=== PATIENT | male | born 1945 | race Caucasian/White ===

== ENCOUNTER 2018-01-08 18:00 | Emergency (ER) | payer MEDICARE, OTHER ==
[~2018-01-08] VITALS: Ht 172.7 cm; Wt 86.2 kg
--- NOTE | 2018-01-08 18:19 | NUR ---
pt rec'd to er via ems , pt c/o dizzy and fell x2 at bedside. pt was released from [facility] 01/04/18 pt had stroke left side weakness . no c/o pain at this time . left neck ej 20g indfusing ns . labs called blood drawn sent to lab
--- NOTE | 2018-01-08 18:22 | NUR ---
xray done . pending ua
--- NOTE | 2018-01-08 18:31 | NUR ---
pt sent to ct
[2018-01-08 18:33] LABS: BASOPHILS % (AUTO) 0.1 % (0.0-2.0); EOSINOPHILS # (AUTO) 0.2 /CMM (0.0-0.7); LYMPHOCYTES # (AUTO) 0.5 /CMM (0.8-4.8); MONOCYTES # (AUTO) 0.5 /CMM (0.1-1.30); NEUTROPHILS # (AUTO) 10.7 /CMM (1.8-8.9); RED BLOOD CELL COUNT(AUTO) 2.36 MIL/uL (4.5-6.0); WHITE BLOOD COUNT (AUTO) 11.9 K/uL (4.3-11.0)
[2018-01-08 18:35] LABS: EOSINOPHILS % (AUTO) 1.5 % (0.0-6.0); LYMPHOCYTES % (AUTO) 4.3 % (20.0-44.0); MEAN CORPUSCULAR HEMOGLOBIN 29 PG (26.0-33.0); MEAN CORPUSCULAR HGB CONC 34 g/dl (31.0-36.0); MEAN CORPUSCULAR VOLUME 86 fL (80-96); MONOCYTES % (AUTO) 4.1 % (2.0-12.0); PLATELET COUNT (AUTO) 296 /CMM (150-450); RDW COEFFICIENT OF VARIATION 14.6 (11.5-15.0)
[2018-01-08 18:40] LABS: HEMATOCRIT 20 % (39-51); HEMOGLOBIN 6.9 g/dL (13.5-17.5)
[2018-01-08 18:48] LABS: CALCIUM, SERUM 8.4 mg/dL (8.5-10.1); CARBON DIOXIDE 20 mmol/L (21-32); CHLORIDE 104 mmol/L (98-107); CREATININE 3.3 mg/dL (0.6-1.3); GLUCOSE 123 mg/dL (74-106); INR 1.16 (0.85-1.15); POTASSIUM 4.2 mmol/L (3.5-5.1); SODIUM SERUM 136 mmol/L (136-145); UREA NITROGEN, BLOOD 34 mg/dL (7-18)
[2018-01-08 18:51] LABS: ALANINE AMINOTRANSFERASE 23 U/L (12-78); ALBUMIN 2.6 g/dL (3.4-5.0); ALKALINE PHOSPHATASE 115 U/L (46-116); ASPARTATE AMINOTRANSFERASE 17 U/L (15-37); BILIRUBIN,DIRECT 0.1 mg/dL (0.0-0.2); BILIRUBIN,TOTAL 0.4 mg/dL (0.2-1.0); TOTAL PROTEIN, SERUM 6.8 g/dL (6.4-8.2)
[2018-01-08 18:53] LABS: TROPONIN I < 0.017 ng/mL (0.00-0.056)
--- NOTE | 2018-01-08 18:56 | NUR ---
pt back from ct iv hepocked 20g .
--- NOTE | 2018-01-08 19:09 | NUR ---
in and out done ua sent to lab .
[2018-01-08 19:10] LABS: THYROID STIMULATING HORMONE 3.908 uIU/mL (0.358-3.74)
[2018-01-08 19:21] LABS: APPEARANCE,URINE Clear (CLEAR); BILIRUBIN,URINE Negative (NEGATIVE); BLOOD, URINE Small Ery/uL (NEGATIVE); COLOR,URINE Yellow (YELLOW); KETONES,URINE Negative (NEGATIVE); LEUKOCYTE ESTERASE ,URINE Negative (NEGATIVE); NITRITE, URINE Negative (NEGATIVE); PH,URINE 5.5 (5.0-8.0); PROTEIN,URINE 100 mg/dl (NEGATIVE); UGLUCOSE Negative (NEGATIVE); UROBILINOGEN,URINE 0.2 EU/dL (0.2)
[2018-01-08] MEDS ORDERED: ASPI-1152 PO (19:24)
[2018-01-08] MEDS ORDERED: SERT100T PO (19:24)
[2018-01-08] MEDS ORDERED: TAMS-12 PO (19:24)
[2018-01-08] MEDS ORDERED: ALLO100T PO (19:24)
[2018-01-08] MEDS ORDERED: OXYB5TAB PO (19:24)
[2018-01-08] MEDS ORDERED: ROSU20TA PO (19:24)
[2018-01-08] MEDS ORDERED: EVOL140P SQ (19:24)
[2018-01-08 19:25] LABS: BAND % (MANUAL) 1 % (0.0-5.0); LYMPHOCYTES % (MANUAL) 4 % (16-48); MONOCYTES % (MANUAL) 4 % (0-11.0); NEUTROPHILS % (MANUAL) 91 (42-76)
[2018-01-08 19:28] LABS: BACTERIA,URINE 1+ /HPF (None Seen); SQUAMOUS EPITHELIAL CELL,UR None Seen /HPF (None Seen); URINE AMORPHOUS PHOSPHATES Moderate /HPF (None Seen); WBC,URINE NONE SEEN /HPF (0-3)
--- NOTE | 2018-01-08 20:13 | NUR ---
REPORT GIVEN TO AURELIANO
--- NOTE | 2018-01-08 20:22 | NUR ---
PT OFF TO CT
--- NOTE | 2018-01-08 20:25 | NUR ---
Cindy desai in ED - 01/08/18 at 2310 by [facility] INFUSING NOW
--- NOTE | 2018-01-08 20:39 | NUR ---
PT BACK FROM CT
--- NOTE | 2018-01-08 21:09 | NUR ---
ON-CALL THORACIC SURGEON PAGED.
--- NOTE | 2018-01-08 21:38 | NUR ---
BP ON RIGHT ARM 103/63 WITH MN FAINT 104 BP ON LEFT ARM 107/83 WITH MN 108
--- NOTE | 2018-01-08 21:41 | NUR ---
[facility] CALLED AND NOTIFIED ABOUT PT FACESHEET AND CT REPORT FAXED TO [facility].
--- NOTE | 2018-01-08 21:42 | NUR ---
BLOOD TRANSFUSION CONSENT SIGNED BY FAMILY MEMBER AND ER MD REDDY
--- NOTE | 2018-01-08 21:52 | NUR ---
AWAITING BLOOD TO BE READY. CALLED LAB X1
--- NOTE | 2018-01-08 21:53 | NUR ---
[facility] NOTIFIED. FACESHEET AND CT REPORT FAXED.
--- NOTE | 2018-01-08 22:25 | NUR ---
[facility] 1 UNIT INFUSING NOW. WILL CONTINUE TO MONITOR FOR ANY CHANGES
--- NOTE | 2018-01-08 22:28 | NUR ---
[facility] CALLED FOR HIGHER LEVEL OF CARE.
[2018-01-08] MEDS ORDERED: CT SWABBABLE VALVE TRANS SET 1 EA INFUS.SET MC ONE (22:33)
[2018-01-08] MEDS ORDERED: IOHEXOL-350 100 ML VIAL IV ONE (22:33)
[2018-01-08] MEDS ORDERED: IV NS 0.9% 250 ML IV ONE (22:33)
--- NOTE | 2018-01-08 23:13 | NUR ---
CALLED [facility]. PT ACCEPTED BY DR CARPIO. ICU [id number].
--- NOTE | 2018-01-08 23:13 | NUR ---
PT COMFORTABLE AT THIS TIME. NS NOW RUNNING THROUGH IV LINE
[2018-01-08] MEDS ORDERED: ONDANSETRON HCL/PF 4 MG/2 ML VIAL ONE (23:17)
--- NOTE | 2018-01-08 23:17 | NUR ---
[facility] CCT ETA 1HR
[2018-01-08] MEDS ORDERED: HYDROMORPHONE INJ 2 MG/ML DISP.SYRIN ONE ×2 (23:18→23:58)
[2018-01-08] MEDS ORDERED: ONDANSETRON HCL/PF - ER 4 MG/2 ML VIAL IV ONE (23:30)
[2018-01-08] MEDS ORDERED: HYDROMORPHONE 1 MG/1 ML DISP.SYRIN IV ONE (23:30)
--- NOTE | 2018-01-08 23:53 | NUR ---
REPORT GIVEN TO ICU NURSE JUAN M CEDILLO
[2018-01-09] MEDS ORDERED: HYDROMORPHONE 1 MG/1 ML DISP.SYRIN IV ONE
--- NOTE | 2018-01-09 00:08 | NUR ---
AWAITING FOR TRANSPORT
--- NOTE | 2018-01-09 00:31 | NUR ---
REPORT GIVEN TO GREASE MAN CHRIS
[2018-01-09 00:32] VITALS: BP 161/60
== END 2018-01-09 00:51 | disposition short-term general hospital (02) ==
LOC: ER 18:02 → TELE 20:07 → UNDOADMIN 20:07 → ER 01-09 00:51
DX: S36.892A Contusion of other intra-abdominal organs, initial encounter (principal); I71.3 Abdominal aortic aneurysm, ruptured; R55 Syncope and collapse; D64.9 Anemia, unspecified; F10.10 Alcohol abuse, uncomplicated; N19 Unspecified kidney failure; Z86.73 Personal history of transient ischemic attack (TIA), and cerebral infarction without residual deficits; Z79.82 Long term (current) use of aspirin; W18.39XA Other fall on same level, initial encounter; Y93.89 Activity, other specified; Y92.89 Other specified places as the place of occurrence of the external cause; Y99.8 Other external cause status
CPT/HCPCS: 36415; 70450-TC; 71045-TC; 71250-TC; 72125-TC; 80048-TC; 80076-TC; 81000-TC; 82962-TC; 84443-TC; 84484-TC; 85025-TC; 85730-TC; 86850-TC; 86921-TC; 87081-TC; A4606; J1170; J2405; J7050; P9016-BL; Q9967; Z7610

== ENCOUNTER 2019-09-18 15:55 | Inpatient (IN) | payer MEDICARE, OTHER ==
[~2019-09-18] VITALS: Ht 167.6 cm; Wt 84.4 kg
[~2019-09-18 15:55] MED LIST: ALLO100T PO; ASPI-1152 PO; EVOL140P3 SQ; OXYB-58 PO; ROSU20TA2 PO; SERT100T PO; TAMS-12 PO
--- NOTE | 2019-09-18 16:05 | NUR ---
[id number] frm home c/o SOB/chest pain s/p dialysis earlier. pt was given nitro x 1w/ relief. patient a/ox3, breathing even and unlabored, spo2 88%, placed on 2lpm via nc. no distress noted. Changed into gown, attached to the secured entrance monitor.
[2019-09-18] MEDS ORDERED: ACETAMINOPHEN ES 500 MG TABLET ONE (16:08)
--- NOTE | 2019-09-18 16:10 | NUR ---
DR. ROLDAN AT BEDSIDE FOR EVAL.
[2019-09-18 16:25] LABS: BASOPHILS % (AUTO) 0.4 % (0.0-2.0); EOSINOPHILS % (AUTO) 2.4 % (0.0-6.0); HEMATOCRIT 30 % (39-51); HEMOGLOBIN 10.2 g/dL (13.5-17.5); LYMPHOCYTES # (AUTO) 0.6 /CMM (0.8-4.8); LYMPHOCYTES % (AUTO) 5.7 % (20.0-44.0); MEAN CORPUSCULAR HGB CONC 34 g/dl (31.0-36.0); MEAN CORPUSCULAR VOLUME 96 fL (80-96); MONOCYTES # (AUTO) 0.7 /CMM (0.1-1.30); MONOCYTES % (AUTO) 7.1 % (2.0-12.0); NEUTROPHILS # (AUTO) 8.5 /CMM (1.8-8.9); NEUTROPHILS % (AUTO) 84.4 % (43.0-81.0); PLATELET COUNT (AUTO) 172 /CMM (150-450); RED BLOOD CELL COUNT(AUTO) 3.17 MIL/uL (4.5-6.0)
[2019-09-18] MEDS ORDERED: ACETAMINOPHEN ES 500 MG TABLET PO ONE (16:30)
--- NOTE | 2019-09-18 16:41 | NUR ---
CALLED FOR TELE BED AND MOVE SHEET TURNED IN TO ADMITTING
[2019-09-18 16:46] LABS: ALANINE AMINOTRANSFERASE 23 U/L (12-78); ALBUMIN 2.7 g/dL (3.4-5.0); ALKALINE PHOSPHATASE 109 U/L (46-116); ASPARTATE AMINOTRANSFERASE 28 U/L (15-37); B-TYPE NATRIURETIC PEPTIDE 6994 PG/ML (0-125); BILIRUBIN,DIRECT 0.2 mg/dL (0.0-0.2); BILIRUBIN,TOTAL 0.7 mg/dL (0.2-1.0); CALCIUM, SERUM 9.3 mg/dL (8.5-10.1); CARBON DIOXIDE 31 mmol/L (21-32); CHLORIDE 99 mmol/L (98-107); CREATININE 3.4 mg/dL (0.6-1.3); GLUCOSE 118 mg/dL (74-106); POTASSIUM 3.7 mmol/L (3.5-5.1); SODIUM SERUM 140 mmol/L (136-145); TOTAL PROTEIN, SERUM 7.4 g/dL (6.4-8.2); UREA NITROGEN, BLOOD 15 mg/dL (7-18)
[2019-09-18] MEDS ORDERED: VANCOMYCIN 1 GM in IV D5W 250 ML IV ONE (17:00)
[2019-09-18] MEDS ORDERED: PIPERACILLIN /TAZOBACTAM 3.375 G in IV D5W 50 ML IV ONE (17:00)
--- NOTE | 2019-09-18 17:00 | NUR ---
patient unable to produce urine, dr. jolly made aware.
--- NOTE | 2019-09-18 17:31 | NUR ---
DR ARZATE AT BEDSIDE.
--- NOTE | 2019-09-18 17:50 | NUR ---
ASHLEY, SPOKE TO PT AND AT BEDSIDE, BOTH DOESNT REMEMBER THE MEDICATION THE PT IS TAKING, PER SHE WILL GO HOME AND GET THE MEDICATION.
--- NOTE | 2019-09-18 17:57 | NUR ---
bed assign 304-1 tele
[2019-09-18] MEDS ORDERED: ONDANSETRON HCL/PF 4 MG/2 ML VIAL IVP PRN (18:00)
[2019-09-18] MEDS ORDERED: Z GUARD REMEDY 2 OZ OINT TP PRN (18:00)
[2019-09-18] MEDS ORDERED: HYDROCODONE/APAP 5/325MG 1 EACH TABLET PO PRN (18:00)
[2019-09-18] MEDS ORDERED: MAG HYDROX/AL HYDROX/SIMETH 30 ML UDC PO PRN (18:00)
[2019-09-18] MEDS ORDERED: MAGNESIUM HYDROXIDE 30 ML UDC PO PRN (18:00)
--- NOTE | 2019-09-18 18:04 | NUR ---
REPORT GIVEN TO WALE PÉREZ.
[2019-09-18] MEDS ORDERED: FEE PK DOSING 1 MIN EA MC ONE (18:22)
[2019-09-18] MEDS ORDERED: VANCOMYCIN 500 MG in IV D5W 100 ML IV PRN (18:30)
--- NOTE | 2019-09-18 18:33 | NUR ---
RN NOTES Patient received at this time from ER. R HAND 20, with FLEX fistula. no sob noted, patient shows no s/s of pain at this time. Connected to a tele monitor. Bed at the lowest setting, call light within reach, side rails up x2.
--- NOTE | 2019-09-18 18:37 | NUR ---
TRANSFERRED TO ROOM 304-1 VIA ACLS PROTOCOL. NO DISTRESS NOTED.
--- NOTE | 2019-09-18 18:52 | NUR ---
RN CLOSING NOTRES Patient received at this time from ER. R HAND 20, with FLEX fistula. no sob noted, patient shows no s/s of pain at this time. Connected to a tele monitor. Bed at the lowest setting, call light within reach, side rails up x2. Will give report to NOC RN for LIVAN bedside.
--- NOTE | 2019-09-18 19:00 | NUR ---
FRONT WORKER NOTES Received patient A/O x3-4, awake on bed, with delayed thought process/though blocking noted. On tele monitor with NSR noted. On RA, no SOB/respiratory distress noted at this time. Patient denies chest pain at this time. Initial skin assessment done, patient claimed no skin issues identified at this time. Patient preferred to keep on his pants while on hospital gown. Provided snacks per patient demand, on Renal diet. Kept on bed clean, dry and comfortable. Med recon completed. On fall and aspiration precautions. Call light within easy reach. Will continue to monitor accordingly.
[2019-09-18] MEDS ORDERED: DEXL60CA3 PO (19:43)
[2019-09-18] MEDS ORDERED: CARV12.52 PO (19:43)
[2019-09-18] MEDS ORDERED: LISI10TA5 PO (19:43)
[2019-09-18 20:00] VITALS: BP 107/67
[2019-09-18] MEDS: ZOSYN IVPB 2.25 G in IV D5W 50ml IV SCH (23:29)
--- NOTE | 2019-09-19 01:00 | NUR ---
LOCATION WORKER NOTES Endorsed to ELISA Tilley for LIVAN.
--- NOTE | 2019-09-19 01:10 | NUR ---
MACHINE II TRIMMER NOTES REPORT GIVEN BY PAN FOR [facility]. RECEIVED PATIENT AWAKE IN BED, A/OX3-4 WITH DELAYED THOUGHT PROCESS. PATIENT IS IN A STABLE CONDITION. PATIENT IS VERBALLY RESPONSIVE AND ABLE TO MAKE NEEDS KNOWN. ON TELE MONITORING, WITH NSR NOTED. ON ROOM AIR, NO SOB, NO S/S OF ACUTE DISTRESS, NO COMPLAINS OF PAIN AT THIS TIME. ON FALL AND ASPIRATION PRECAUTIONS. CALL LIGHT IS WITHIN EASY REACH. WILL CONTINUE TO MONITOR PATIENT ACCORDINGLY.
[2019-09-19 04:01] VITALS: BP 117/70
[2019-09-19] MEDS: ZOSYN IVPB 2.25 G in IV D5W 50ml IV SCH ×4 (05:42→23:24)
[2019-09-19 07:01] LABS: BASOPHILS % (AUTO) 0.2 % (0.0-2.0); EOSINOPHILS % (AUTO) 4.4 % (0.0-6.0); HEMATOCRIT 25 % (39-51); HEMOGLOBIN 8.4 g/dL (13.5-17.5); LYMPHOCYTES # (AUTO) 0.5 /CMM (0.8-4.8); LYMPHOCYTES % (AUTO) 7.2 % (20.0-44.0); MEAN CORPUSCULAR HGB CONC 34 g/dl (31.0-36.0); MEAN CORPUSCULAR VOLUME 96 fL (80-96); MONOCYTES # (AUTO) 0.5 /CMM (0.1-1.30); MONOCYTES % (AUTO) 7.2 % (2.0-12.0); NEUTROPHILS # (AUTO) 5.5 /CMM (1.8-8.9); PLATELET COUNT (AUTO) 132 /CMM (150-450); RED BLOOD CELL COUNT(AUTO) 2.61 MIL/uL (4.5-6.0); WHITE BLOOD COUNT (AUTO) 6.8 K/uL (4.3-11.0)
[2019-09-19 07:09] LABS: CHOLESTEROL 103 mg/dL (<200); HDL CHOLESTEROL 23 mg/dL (40-60); LDL 57 mg/dL (0-99); THYROID STIMULATING HORMONE 0.871 uIU/mL (0.358-3.74); TRIGLYCERIDES 120 mg/dL (30-150)
--- NOTE | 2019-09-19 07:14 | NUR ---
FISHING TACKLE REPAIRER CLOSING NOTES PATIENT AWAKE IN BED, A/OX3-4. PATIENT IS IN A STABLE CONDITION. PATIENT IS VERBALLY RESPONSIVE AND ABLE TO MAKE NEEDS KNOWN. ON TELE MONITORING, WITH NSR NOTED. ON ROOM AIR, NO SOB, NO S/S OF ACUTE DISTRESS, NO COMPLAINS OF PAIN AT THIS TIME. ON FALL AND ASPIRATION PRECAUTIONS. CALL LIGHT IS WITHIN EASY REACH. ALL NURSING NEEDS MET AND PROVIDED. ALL DUE MED GIVEN ORDERED. WILL ENDORSE TO DAY SHIFT NURSE FOR LIVAN.
--- NOTE | 2019-09-19 07:30 | NUR ---
MS/RN Patient received Patient received from hourly shift, with diagnosis of sepsis and pneumonia. A/O X4, no shortness of breath, denies any pain or discomfort at this time. Heplock to right hand flushing well, shows no signs of infiltration. Left upper arm with AV fistula, dressing dry and intact. All needs attended, call light within reach. Time allowed for all questions and concerns to be addressed. Will continue to monitor and ensure safety.
[2019-09-19 07:57] LABS: CALCIUM, SERUM 7.7 mg/dL (8.5-10.1); CARBON DIOXIDE 26 mmol/L (21-32); CHLORIDE 95 mmol/L (98-107); PHOSPHORUS 2.4 mg/dL (2.5-4.9); SODIUM SERUM 138 mmol/L (136-145); UREA NITROGEN, BLOOD 20 mg/dL (7-18)
[2019-09-19 08:00] VITALS: BP 118/57
[2019-09-19 08:05] LABS: MAGNESIUM 1.7 mg/dL (1.8-2.4)
[2019-09-19 08:23] LABS: GLUCOSE 391 mg/dL (74-106)
[2019-09-19] MEDS ORDERED: INSULIN REGULAR, HUMAN 100 UNIT/ML 3 ML VIAL SQ PRN (09:00)
[2019-09-19] MEDS ORDERED: DEXTROSE 50%-WATER 50 ML DISP.SYRIN IV PRN (09:00)
[2019-09-19] MEDS ORDERED: MAGNESIUM OXIDE 400 MG TABLET PO ONE (09:00)
[2019-09-19] MEDS ORDERED: POTASSIUM CHLORIDE 20 MEQ TAB.PRT.SR PO ONE (09:00)
--- NOTE | 2019-09-19 09:16 | NUR ---
MS/RN S/B Ron Estevez RN MENTAL HEALTH Seen by RN MENTAL HEALTH - cardiology and nephrology consults ordered. Patient stating that he does not have history of diabetes although blood glucose showing 391 on morning blood draw. Accu checks and mild sliding scale coverage ordered. Medication reconciliation completed, labs ordered for tomorrow.
[2019-09-19] MEDS: BLOOD SUGAR DIAGNOSTIC 1 EACH STRIP IN SCH ×4 (09:23→22:02)
--- NOTE | 2019-09-19 09:30 | NUR ---
MS/RN Blood sugar Blood sugar 106, no coverage needed.
--- NOTE | 2019-09-19 09:50 | NUR ---
MS/RN Temperature Temperature noted to be 100.6. TREE SPECIALIST aware, patient already had blood cultures taken and IVAB ordered, tylenol administered, cooling measures applied.
[2019-09-19] MEDS: ACETAMINOPHEN 325 MG TABLET PO PRN (09:51)
[2019-09-19] MEDS ORDERED: K PHOS NEUTRAL 250 MG TABLET PO ONE (11:00)
--- NOTE | 2019-09-19 12:37 | NUR ---
MS/RN Blood sugar Blood sugar 118 at noon, no coverage needed.
--- NOTE | 2019-09-19 13:08 | NUR ---
MS/RN Temperature Temperature rechecked, now 99.3
[2019-09-19 16:00] VITALS: BP_SYST 112; BP_DIAS 67; BP_DIAS 86
--- NOTE | 2019-09-19 17:11 | NUR ---
MS/RN New heplock 20g heplock inserted into right AC, old line removed as per patient, painful.
--- NOTE | 2019-09-19 18:36 | NUR ---
MS/RN End note Patient remains in stable condition. All needs attended. Will endorse to maintenance supervisor 2nd shift.
--- NOTE | 2019-09-19 19:00 | NUR ---
MS RN NOTE RECEIVED PT IN STABLE CONDITION A/O X 3-4, CURRENTLY IN BED WATCHING TV. NO SIGNS OF SOB OR DISTRESS, NO C/O PAIN OR N/V. IV IN R AC #[address], S/L. ALL CURRENT NEEDS ATTENDED TO. BED LOW, LOCKED, UPPER RAILS UP, AND CALL LIGHT WITHIN REACH. WILL CONT. TO MONITOR.
[2019-09-19 20:37] VITALS: BP 127/70
[2019-09-20] MEDS: ZOSYN IVPB 2.25 G in IV D5W 50ml IV SCH ×3 (05:02→17:15)
--- NOTE | 2019-09-20 06:16 | NUR ---
MS RN NOTE PT REMAINS IN STABLE CONDITION A/O X 3-4, CURRENTLY IN BED, RESTING. NO SIGNS OF SOB OR DISTRESS, NO C/O PAIN OR N/V. IV IN R HAND#[address], S/L. ALL CURRENT NEEDS ATTENDED TO. BED LOW, LOCKED, UPPER RAILS UP, AND CALL LIGHT WITHIN REACH. WILL CONT. TO MONITOR AND ENDORSE TO NEXT SHIFT FOR LIVAN.
[2019-09-20] MEDS: BLOOD SUGAR DIAGNOSTIC 1 EACH STRIP IN SCH ×4 (06:30→21:09)
--- NOTE | 2019-09-20 07:20 | NUR ---
MS RN OPENING NOTES PATIENT RECEIVED IN BED, AWAKE. A/O X 4, ABLE TO VERBALIZE NEEDS. PATIENT IS ON ROOM AIR BREATHING EVENLY IN NO DISTRESS OR SHORTNESS OF BREATH. IV SALINE LOCK ON R HAND INTACT AND PATENT. NO REDNESS OR SIGNS OF INFILTRATION NOTED AT THIS TIME. THERE IS AN AV FISTULA ON FLEX. FISTULA INTACT WITH BRUITS PRESENT. SAFETY MEASURES IN PLACE: BED IN LOW POSITION AND LOCKED, RAILS UP X 2, CALL LIGHT WITHIN REACH.
[2019-09-20 07:48] LABS: BASOPHILS % (AUTO) 0.4 % (0.0-2.0); EOSINOPHILS % (AUTO) 6.7 % (0.0-6.0); HEMATOCRIT 28 % (39-51); HEMOGLOBIN 9.6 g/dL (13.5-17.5); LYMPHOCYTES # (AUTO) 0.6 /CMM (0.8-4.8); LYMPHOCYTES % (AUTO) 7.6 % (20.0-44.0); MEAN CORPUSCULAR HGB CONC 34 g/dl (31.0-36.0); MEAN CORPUSCULAR VOLUME 94 fL (80-96); MONOCYTES # (AUTO) 0.7 /CMM (0.1-1.30); MONOCYTES % (AUTO) 8.1 % (2.0-12.0); NEUTROPHILS # (AUTO) 6.5 /CMM (1.8-8.9); NEUTROPHILS % (AUTO) 77.2 % (43.0-81.0); PLATELET COUNT (AUTO) 179 /CMM (150-450); RED BLOOD CELL COUNT(AUTO) 3.02 MIL/uL (4.5-6.0); WHITE BLOOD COUNT (AUTO) 8.4 K/uL (4.3-11.0)
[2019-09-20 08:00] VITALS: BP 110/50
[2019-09-20 08:25] LABS: CALCIUM, SERUM 8.8 mg/dL (8.5-10.1); CREATININE 5.9 mg/dL (0.6-1.3); GLUCOSE 104 mg/dL (74-106); MAGNESIUM 1.8 mg/dL (1.8-2.4); PHOSPHORUS 3.2 mg/dL (2.5-4.9); UREA NITROGEN, BLOOD 26 mg/dL (7-18)
[2019-09-20 08:37] LABS: CARBON DIOXIDE 25 mmol/L (21-32); CHLORIDE 101 mmol/L (98-107); POTASSIUM 3.6 mmol/L (3.5-5.1); SODIUM SERUM 139 mmol/L (136-145)
[2019-09-20 08:43] LABS: IRON, SERUM 18 ug/dl (50-175); TOTAL IRON BINDING CAPACITY 136 ug/dl (250-450)
[2019-09-20 08:57] LABS: FERRITIN 2240 ng/mL (8-388)
--- NOTE | 2019-09-20 12:42 | NUR ---
RN NOTES PATIENT IN BED AWAKE AND JUST STARTED ON HEMODIALYSIS VIA FLEX SHUNT. PRE- HD V/S; BP 122/69 , P 96 ,R 18 AND T 98.9F. WILL CONTINUE TO MONITOR.
--- NOTE | 2019-09-20 15:41 | NUR ---
RN S/P HD NOTES HEMODIALYSIS JUST FINISHED WITH 1,100ML OUTPUT. DRY DRESSING APPLIED TO FLEX AV SHUNT. PT TOLERATED PROCEDURE. S/P HD VS: BP 137/79, P 94, R 18 AND T 98.8F. WILL CONTINUE TO MONITOR
[2019-09-20 16:00] VITALS: BP 116/60
[2019-09-20] MEDS ORDERED: VANCOMYCIN 1 GM in IV D5W 250 ML IV ONE (16:00)
[2019-09-20] MEDS: ACETAMINOPHEN 325 MG TABLET PO PRN (16:00)
--- NOTE | 2019-09-20 16:35 | NUR ---
RN NOTES PT NOTED WITH TEMP OF 101.5F TYLENOL 650MG PO GIVEN AND COOLING MEASURES PROVIDED. TERRY ALEXIS MADE AWARE WITH ORDER TO CONTINUE TO MONITOR PT.
--- NOTE | 2019-09-20 17:14 | NUR ---
RN NOTES PATIENT NOTED WITH BS OF 133. PT REFUSED INSULIN COVERAGE OF 2 UNITS PER SLIDING SCALE.
[2019-09-20] MEDS: CARVEDILOL 12.5 MG TABLET PO SCH (18:02)
[2019-09-20] MEDS: LISINOPRIL (10MG) 10 MG TABLET PO SCH (18:02)
--- NOTE | 2019-09-20 18:49 | NUR ---
MS RN CLOSING NOTES PATIENT IN BED AWAKE AND RESTING @ MODERATE HIGH BACKREST POSITION. A/O X3. PUERTO RICAN SPEAKING. ON ROOM AIR, TOLERATING WELL WITH NO SOB NOTED THROUGHOUT THE DAY. IV ACCESS ON RIGHT HAND G #20 INTACT AND PATENT. AV SHUNT ON FLEX IN PLACE WITH + BRUIT/THRILL NOTED WITH DRY DRESSING C/D/I. ALL NEEDS ATTENDED WELL. ALL DUE MEDS GIVEN ORDERED. SAFETY MEASURES KEPT IN PLACE. BED IN LOWEST LOCKED POSITION WITH SIDE-RAILS UP X2. CALL LIGHT IN REACH. WILL ENDORSE TO NIGHT NURSE FOR LIVAN.
[2019-09-20 20:00] VITALS: BP_SYST 95; BP_SYST 98; BP_DIAS 57
[2019-09-20] MEDS: TAMSULOSIN 0.4 MG CAP.SR.24H PO SCH (21:15)
--- NOTE | 2019-09-20 22:16 | NUR ---
patient noted to have persistent cough and Dr Gage paged for orders and gave orders. and carried out
[2019-09-20] MEDS ORDERED: GUAIFENESIN 300 MG/15 ML UDC PO PRN (22:30)
[2019-09-21] VITALS: BP 109/64
[2019-09-21] MEDS: ZOSYN IVPB 2.25 G in IV D5W 50ml IV SCH ×5 (00:19→23:56)
[2019-09-21] MEDS: ACETAMINOPHEN 325 MG TABLET PO PRN (00:32)
--- NOTE | 2019-09-21 01:14 | NUR ---
patient temp 101.8.tylenol 650mg po given for temp. refused sponge bath and cold compress.
[2019-09-21] MEDS: ZOLPIDEM TARTRATE 5 MG TABLET PO PRN ×2 (01:42→21:20)
--- NOTE | 2019-09-21 01:42 | NUR ---
to call and inform the creative consultant physician ,charge ordered not to because the phsysician is aware of the elevated temp.will call in the morning
[2019-09-21] MEDS: BLOOD SUGAR DIAGNOSTIC 1 EACH STRIP IN SCH ×4 (05:50→21:12)
--- NOTE | 2019-09-21 05:50 | NUR ---
blood sugar 92mg/dl. light snack given. alert and oriented.
--- NOTE | 2019-09-21 07:49 | NUR ---
MESSAGE LEFT FOR DR MIRANDA THE ID CONDULT ABOUT THE FEVER,101.8.
[2019-09-21 08:13] VITALS: BP 101/56
[2019-09-21] MEDS ORDERED: Medication Not On Formulary EA (Rosuvastatin Calcium (Crestor) 40 MG) PO SCH (09:00)
[2019-09-21] MEDS ORDERED: Medication Not On Formulary EA (Dexlansoprazole (Dexilant) 1 CAP) PO SCH (09:00)
[2019-09-21] MEDS: LISINOPRIL (10MG) 10 MG TABLET PO SCH ×2 (09:11→17:53)
[2019-09-21] MEDS: CARVEDILOL 12.5 MG TABLET PO SCH ×2 (09:11→17:53)
[2019-09-21] MEDS: ASPIRIN EC 81 MG TABLET.DR PO SCH (09:11)
[2019-09-21] MEDS: OXYBUTYNIN CHLORIDE ER 5 MG TAB PO SCH (09:12)
[2019-09-21] MEDS: ALLOPURINOL 100 MG TABLET PO SCH (09:12)
[2019-09-21] MEDS: SERTRALINE HCL 50 MG TABLET PO SCH (09:12)
[2019-09-21] MEDS ORDERED: LORAZEPAM INJ 2 MG/ML VIAL IV PRN (11:30)
[2019-09-21 16:51] VITALS: BP 121/68
[2019-09-21] MEDS: ATORVASTATIN 40 MG TABLET PO SCH (17:53)
[2019-09-21] MEDS: FERROUS SULFATE (325 MG) 325 MG/TAB TABLET PO SCH (17:53)
[2019-09-21 19:32] LABS: OCCULT BLOOD STOOL NEGATIVE (NEGATIVE)
[2019-09-21 20:00] VITALS: BP 113/68
[2019-09-21] MEDS: TAMSULOSIN 0.4 MG CAP.SR.24H PO SCH (21:12)
[2019-09-22] MEDS: ZOSYN IVPB 2.25 G in IV D5W 50ml IV SCH ×3 (05:41→17:15)
[2019-09-22] MEDS: BLOOD SUGAR DIAGNOSTIC 1 EACH STRIP IN SCH ×4 (06:06→21:46)
--- NOTE | 2019-09-22 06:24 | NUR ---
MS RN NOTES AWAKE & RESPONSIVE. NOT IN ANY DISTRESS. NO SOB NOTED. DENIES ANY PAIN OR DISCOMFORT AT THIS TIME. WITH IV-HL PATENT & INTACT. MONITORED ACCORDINGLY. CALL LIGHT WITHIN REACH. BED IN LOWEST POSITION. SR UP X 2 FOR SAFETY. WILL ENDORSE TO NEXT SHIFT.
[2019-09-22 06:52] LABS: BASOPHILS % (AUTO) 0.3 % (0.0-2.0); HEMATOCRIT 27 % (39-51); HEMOGLOBIN 9.1 g/dL (13.5-17.5); LYMPHOCYTES # (AUTO) 0.8 /CMM (0.8-4.8); LYMPHOCYTES % (AUTO) 9.9 % (20.0-44.0); MEAN CORPUSCULAR HGB CONC 34 g/dl (31.0-36.0); MEAN CORPUSCULAR VOLUME 95 fL (80-96); MONOCYTES # (AUTO) 0.6 /CMM (0.1-1.30); MONOCYTES % (AUTO) 6.5 % (2.0-12.0); NEUTROPHILS # (AUTO) 6.5 /CMM (1.8-8.9); NEUTROPHILS % (AUTO) 76.3 % (43.0-81.0); PLATELET COUNT (AUTO) 215 /CMM (150-450); RED BLOOD CELL COUNT(AUTO) 2.85 MIL/uL (4.5-6.0); WHITE BLOOD COUNT (AUTO) 8.5 K/uL (4.3-11.0)
[2019-09-22 06:58] LABS: CALCIUM, SERUM 9.1 mg/dL (8.5-10.1); CARBON DIOXIDE 25 mmol/L (21-32); CHLORIDE 100 mmol/L (98-107); CREATININE 5.9 mg/dL (0.6-1.3); GLUCOSE 96 mg/dL (74-106); POTASSIUM 3.5 mmol/L (3.5-5.1); SODIUM SERUM 136 mmol/L (136-145); UREA NITROGEN, BLOOD 29 mg/dL (7-18)
[2019-09-22 08:00] VITALS: BP 94/58
--- NOTE | 2019-09-22 08:00 | NUR ---
rn notes received patient in the bed a/o x3, patient quiet, no acute respiratory distress, v/s taken 94/57, p-86, held bp medication. patient refused pain at this time. patient ambulatory using bathroom, iv access on right nand intact sl. safety precaution maintained all the time.
[2019-09-22] MEDS: SERTRALINE HCL 50 MG TABLET PO SCH (08:21)
[2019-09-22] MEDS: FERROUS SULFATE (325 MG) 325 MG/TAB TABLET PO SCH ×2 (08:21→17:07)
[2019-09-22] MEDS: PANTOPRAZOLE 40 MG TABLET.DR PO SCH (08:21)
[2019-09-22] MEDS: ASPIRIN EC 81 MG TABLET.DR PO SCH (08:21)
[2019-09-22] MEDS: OXYBUTYNIN CHLORIDE ER 5 MG TAB PO SCH (08:21)
[2019-09-22] MEDS: ALLOPURINOL 100 MG TABLET PO SCH (08:22)
[2019-09-22 08:23] VITALS: BP 87/48
[2019-09-22] MEDS: CARVEDILOL 12.5 MG TABLET PO SCH ×2 (09:00→17:00)
[2019-09-22] MEDS: LISINOPRIL (10MG) 10 MG TABLET PO SCH ×2 (09:00→17:07)
--- NOTE | 2019-09-22 12:00 | NUR ---
RN NOTES BS-93 MG/DL NO COVERAGE GIVEN BECAUSE OF PATIENT REFUSED LUNCH, INFUSING ZOSYN 100 MG/DL ON RIGHT HAND INTACT, PATIENT REFUSED PAIN, CALL LIGHT WITHIN TO REACH, NEXT TO THE BED. CONTINUED MONITORING.
[2019-09-22 16:13] VITALS: BP 116/69
[2019-09-22] MEDS ORDERED: LOPERAMIDE HCL (2 MG CAP) 2 MG CAPSULE PO PRN (16:30)
[2019-09-22] MEDS: ATORVASTATIN 40 MG TABLET PO SCH (17:15)
--- NOTE | 2019-09-22 17:18 | NUR ---
rn notes administered Imodium 2 mg po prn for diarrhea, also administered scheduled medication, bs-91 mg/dl, patient eating dinner, will have a HD today. continued monitoring.
--- NOTE | 2019-09-22 18:59 | NUR ---
rn notes patient going to get hd at this time. patient stable, v/s wnl. patient refused pain. call light within to reach, endorsed oncoming nurse follow plan of care. will administer vancomycin 500 after HD.
--- NOTE | 2019-09-22 19:00 | NUR ---
MS RN NOTE RECEIVED PT IN STABLE CONDITION A/O X3, CURRENTLY RECEIVED DIALYSIS AT BEDSIDE TOLERATING WELL. HD NURSE ALSO NOTED AT BEDSIDE. NO SIGNS OF SOB OR DISTRESS, NO COMPLAINTS OF PAIN OR NAUSEA. IV IN R HAND #[address] S/L. ALL CURRENT NEEDS ATTENDED TO. SAFETY PRECAUTIONS IN PLACE. WILL CONT. TO MONITOR.
[2019-09-22 20:00] VITALS: BP 123/70
--- NOTE | 2019-09-22 21:39 | NUR ---
MS RN NOTE HD FINISHED, 2L REMOVED, PT TOLERATING WELL.
[2019-09-22] MEDS: TAMSULOSIN 0.4 MG CAP.SR.24H PO SCH (21:45)
[2019-09-22] MEDS: ZOLPIDEM TARTRATE 5 MG TABLET PO PRN (21:48)
--- NOTE | 2019-09-22 21:57 | NUR ---
MS RN NOTE PT REQUESTING FOR SLEEPING PILL PRN AMBIEN 5 MG GIVEN. WILL CONT. TO MONITOR.
[2019-09-23] MEDS: ZOSYN IVPB 2.25 G in IV D5W 50ml IV SCH ×5 (00:06→23:38)
--- NOTE | 2019-09-23 06:12 | NUR ---
MS RN NOTE PT REMAINS IN STABLE CONDITION A/O X3, CURRENTLY RESTING IN BED. NO SIGNS OF SOB OR DISTRESS, NO COMPLAINTS OF PAIN OR NAUSEA. IV IN R HAND #[address] S/L. ALL CURRENT NEEDS ATTENDED TO. SAFETY PRECAUTIONS IN PLACE. WILL CONT. TO MONITOR AND ENDORSE TO NEXT SHIFT FOR LIVAN.
--- NOTE | 2019-09-23 07:00 | NUR ---
RN INITIAL NOTE PATIENT IN BED, ASLEEP BUT EASILY AROUSABLE. ALERTX4. NO COMPLAINS OF ANY PAIN NOR SOB AT THIS TIME. ON ROOM AIR. HAS A RIGHT HAND #20 SL. AND A LEFT UA SHUNT. POSSIBLE DC TODAY. BED IN LOWEST POSITION. CALL LIGHT WITHIN REACH. WILL CONTINUE TO MONITOR THIS AM
[2019-09-23 07:14] LABS: BASOPHILS % (AUTO) 0.2 % (0.0-2.0); EOSINOPHILS % (AUTO) 6.1 % (0.0-6.0); HEMATOCRIT 28 % (39-51); HEMOGLOBIN 9.6 g/dL (13.5-17.5); LYMPHOCYTES # (AUTO) 0.8 /CMM (0.8-4.8); MEAN CORPUSCULAR HGB CONC 34 g/dl (31.0-36.0); MEAN CORPUSCULAR VOLUME 94 fL (80-96); MONOCYTES # (AUTO) 0.5 /CMM (0.1-1.30); MONOCYTES % (AUTO) 6.8 % (2.0-12.0); NEUTROPHILS % (AUTO) 76.9 % (43.0-81.0); PLATELET COUNT (AUTO) 248 /CMM (150-450); RED BLOOD CELL COUNT(AUTO) 2.99 MIL/uL (4.5-6.0); WHITE BLOOD COUNT (AUTO) 7.9 K/uL (4.3-11.0)
[2019-09-23 07:16] LABS: CALCIUM, SERUM 8.8 mg/dL (8.5-10.1); CARBON DIOXIDE 27 mmol/L (21-32); CHLORIDE 101 mmol/L (98-107); CREATININE 4.9 mg/dL (0.6-1.3); GLUCOSE 98 mg/dL (74-106); POTASSIUM 3.3 mmol/L (3.5-5.1); SODIUM SERUM 141 mmol/L (136-145); UREA NITROGEN, BLOOD 23 mg/dL (7-18)
[2019-09-23] MEDS: BLOOD SUGAR DIAGNOSTIC 1 EACH STRIP IN SCH ×4 (07:46→21:45)
[2019-09-23 08:00] VITALS: BP 101/47
[2019-09-23] MEDS ORDERED: POTASSIUM CHLORIDE 20 MEQ TAB.PRT.SR PO ONE (08:00)
[2019-09-23] MEDS: ASPIRIN EC 81 MG TABLET.DR PO SCH ×2 (08:18→08:33)
[2019-09-23] MEDS: PANTOPRAZOLE 40 MG TABLET.DR PO SCH (08:19)
[2019-09-23] MEDS: SERTRALINE HCL 50 MG TABLET PO SCH (08:19)
[2019-09-23] MEDS: ALLOPURINOL 100 MG TABLET PO SCH (08:19)
[2019-09-23] MEDS: FERROUS SULFATE (325 MG) 325 MG/TAB TABLET PO SCH ×2 (08:19→17:03)
[2019-09-23] MEDS: LISINOPRIL (10MG) 10 MG TABLET PO SCH ×2 (08:19→17:00)
[2019-09-23] MEDS: CARVEDILOL 12.5 MG TABLET PO SCH ×2 (08:19→17:04)
[2019-09-23] MEDS: OXYBUTYNIN CHLORIDE ER 5 MG TAB PO SCH (08:19)
[2019-09-23 16:00] VITALS: BP 100/58
[2019-09-23] MEDS: ATORVASTATIN 40 MG TABLET PO SCH (17:03)
--- NOTE | 2019-09-23 18:39 | NUR ---
RN CLOSING NOTE PATIENT IN BED, AT BEDSIDE. ALL MEDS GIVEN, ALL NEEDS MET. PATIENT AMBULATORY WITH STEADY GAIT. NO COMPLAINS OF ANY PAIN NOR SOB AT THIS TIME. HD TOMORROW. DC PLANNING FOR TOMORROW. WILL ENDORSE TO NOC SHIFT RN FOR LIVAN
[2019-09-23 20:00] VITALS: BP 89/42
[2019-09-23] MEDS: ZOLPIDEM TARTRATE 5 MG TABLET PO PRN (21:45)
[2019-09-23] MEDS: TAMSULOSIN 0.4 MG CAP.SR.24H PO SCH (21:45)
[2019-09-24 05:00] VITALS: BP 115/62
[2019-09-24] MEDS: BLOOD SUGAR DIAGNOSTIC 1 EACH STRIP IN SCH ×2 (06:29→12:51)
--- NOTE | 2019-09-24 07:20 | NUR ---
M/S RN NOTES PATIENT RESTING IN BED, NO RESPIRATORY DISTRESS, NO C/O PAIN AT THIS TIME. SKIN WARM TO TOUCH. IV ACCESS SITE INTACT AND PATENT. PATIENT WITH FLEX SHUNT WITH C/D/I DRESSING. BED ON LOWEST LOCKED POSITION, CALL LIGHT WITHIN REACH. WILL CONTINUE TO MONITOR.
[2019-09-24] MEDS: PANTOPRAZOLE 40 MG TABLET.DR PO SCH (07:30)
--- NOTE | 2019-09-24 07:45 | NUR ---
M/S RN NOTES PATIENT'S MEDICATIONS NOT GIVEN, PATIENT HAVING HD TODAY.
[2019-09-24 08:00] VITALS: BP 121/73
[2019-09-24 08:17] LABS: BASOPHILS % (AUTO) 0.2 % (0.0-2.0); EOSINOPHILS % (AUTO) 6.9 % (0.0-6.0); HEMATOCRIT 27 % (39-51); HEMOGLOBIN 9.1 g/dL (13.5-17.5); LYMPHOCYTES # (AUTO) 1.1 /CMM (0.8-4.8); MEAN CORPUSCULAR HGB CONC 34 g/dl (31.0-36.0); MEAN CORPUSCULAR VOLUME 94 fL (80-96); MONOCYTES # (AUTO) 0.6 /CMM (0.1-1.30); MONOCYTES % (AUTO) 7.3 % (2.0-12.0); NEUTROPHILS # (AUTO) 5.9 /CMM (1.8-8.9); NEUTROPHILS % (AUTO) 72.6 % (43.0-81.0); PLATELET COUNT (AUTO) 261 /CMM (150-450); RED BLOOD CELL COUNT(AUTO) 2.89 MIL/uL (4.5-6.0); WHITE BLOOD COUNT (AUTO) 8.2 K/uL (4.3-11.0)
[2019-09-24 08:30] LABS: CALCIUM, SERUM 8.7 mg/dL (8.5-10.1); CARBON DIOXIDE 26 mmol/L (21-32); CHLORIDE 101 mmol/L (98-107); CREATININE 6.4 mg/dL (0.6-1.3); GLUCOSE 88 mg/dL (74-106); MAGNESIUM 1.8 mg/dL (1.8-2.4); PHOSPHORUS 2.7 mg/dL (2.5-4.9); POTASSIUM 3.5 mmol/L (3.5-5.1); SODIUM SERUM 139 mmol/L (136-145); UREA NITROGEN, BLOOD 30 mg/dL (7-18)
[2019-09-24 09:00] VITALS: BP 121/73
[2019-09-24] MEDS: OXYBUTYNIN CHLORIDE ER 5 MG TAB PO SCH (09:00)
[2019-09-24] MEDS: ALLOPURINOL 100 MG TABLET PO SCH (09:00)
[2019-09-24] MEDS: SERTRALINE HCL 50 MG TABLET PO SCH (09:00)
[2019-09-24] MEDS: ASPIRIN EC 81 MG TABLET.DR PO SCH (09:00)
[2019-09-24] MEDS: LISINOPRIL (10MG) 10 MG TABLET PO SCH (09:00)
[2019-09-24] MEDS: CARVEDILOL 12.5 MG TABLET PO SCH (09:00)
[2019-09-24] MEDS: FERROUS SULFATE (325 MG) 325 MG/TAB TABLET PO SCH (09:00)
--- NOTE | 2019-09-24 15:50 | NUR ---
M/S RN NOTES PATIENT DISCHARGED IN STABLE CONDITION, NO RESPIRATORY DISTRESS, NO C/O PAIN AT THIS TIME. PATIENT DIALYZED TODAY 1500ML TAKEN OUT, PATIENT TOLERATED IT WELL. PATIENT'S VSS. SKIN WARM TO TOUCH, SKIN ASSESSED NO SKIN BREAKDOWN. FLEX SHUNT INTACT WITH C/D/I DRESSING. PATIENT'S BELONGINGS ACCOUNTED FOR AND SIGNED, MEDICATIONS PICKED UP FROM PHARMACY AND GIVEN TO PATIENT'S . PATIENT'S IV REMOVED AND APPLIED PRESSURE DRESSING. PATIENT ESCORTED TO THE LOBBY AND LEFT IN PRIVATE CAR WITH .
== END 2019-09-24 15:50 | disposition home or self-care (01) | DRG 871 ==
LOC: ER 16:02 → TELE 17:57 → MED 09-19 09:11
PROVIDERS: ADMIT Student in an Organized Health Care Education/Training Program; ATTEND Nurse Practitioner Acute Care
PROC: 5A1D70Z Performance of Urinary Filtration, Intermittent, Less than 6 Hours Per Day (ICD-10-PCS; principal; 2019-09-20)
DX: A41.9 Sepsis, unspecified organism (principal); J15.6 Pneumonia due to other Gram-negative bacteria; N18.6 End stage renal disease; I12.0 Hypertensive chronic kidney disease with stage 5 chronic kidney disease or end stage renal disease; E44.0 Moderate protein-calorie malnutrition; E87.6 Hypokalemia; E83.51 Hypocalcemia; E83.42 Hypomagnesemia; E83.39 Other disorders of phosphorus metabolism; D69.6 Thrombocytopenia, unspecified; Z99.2 Dependence on renal dialysis; Z86.73 Personal history of transient ischemic attack (TIA), and cerebral infarction without residual deficits; E88.09 Other disorders of plasma-protein metabolism, not elsewhere classified; Z68.30 Body mass index [BMI] 30.0-30.9, adult; N25.0 Renal osteodystrophy; R73.9 Hyperglycemia, unspecified; F32.9 Major depressive disorder, single episode, unspecified; F01.50 Vascular dementia, unspecified severity, without behavioral disturbance, psychotic disturbance, mood disturbance, and anxiety
CPT/HCPCS: 36415; 71045-TC; 80048-TC; 80061-TC; 80076-TC; 80202-TC; 82272-TC; 82728-TC; 82962-TC; 83540-TC; 83605-TC; 83735-TC; 83880; 84100-TC; 84443-TC; 84484-TC; 85025-TC; 85730-TC; 86706; 87040-TC; 87045-TC; 87070-TC; 87081-TC; 87340; 90935-TC; 97116-TC; 97530-TC; G0378; J1815; J2543; J3370; J7030; J7050; J7060

== ENCOUNTER 2021-02-05 18:36 | Emergency (ER) | payer MEDICARE, OTHER ==
[~2021-02-05] VITALS: Ht 177.8 cm; Wt 80.7 kg
[~2021-02-05 18:36] MED LIST changes: -ASPI-1152 PO; +ASPI-1420 PO; +CARV12.52 PO; +DEXL60CA3 PO; +LISI10TA29 PO
--- NOTE | 2021-02-05 18:36 | NUR ---
PT [id number] HOME FOR SYNCOPAL EPISODE, HYPOTENSIVE. PT IS AAAOX3 CUBAN SPEAKING ONLY, NOT IN RESPIRATORY DISTRESS, HOOKED TO DATA ARCHITECT, KEPT RESTED AND COMFORTABLE. WILL CONTINUE TO MONITOR.
--- NOTE | 2021-02-05 18:43 | NUR ---
AT BEDSIDE FOR EVAL.
[2021-02-05] MEDS ORDERED: NOREPINEPHRINE 8 MG in IV NS 0.9% 242 ML IV STA (18:51)
[2021-02-05] MEDS ORDERED: IOHEXOL-300 100 ML VIAL IV ONE (18:58)
[2021-02-05] MEDS ORDERED: IV NS 0.9% 250 ML IV ONE (18:58)
[2021-02-05] MEDS ORDERED: ALBUMIN 25% 12.5 GM/50 ML BOTTLE IV ONE (19:00)
[2021-02-05] MEDS ORDERED: IV NS 0.9% 500 ML BAG IV ONE (19:00)
--- NOTE | 2021-02-05 19:00 | NUR ---
PT IS WHEELED TO CT SCAN VIA [facility].
[2021-02-05 19:05] LABS: BASOPHILS % (AUTO) 0.4 % (0.0-2.0); EOSINOPHILS % (AUTO) 1.9 % (0.0-6.0); HEMATOCRIT 32 % (39-51); HEMOGLOBIN 10.5 g/dL (13.5-17.5); LYMPHOCYTES # (AUTO) 0.5 /CMM (0.8-4.8); LYMPHOCYTES % (AUTO) 6.1 % (20.0-44.0); MEAN CORPUSCULAR HGB CONC 32 g/dl (31.0-36.0); MEAN CORPUSCULAR VOLUME 100 fL (80-96); MONOCYTES # (AUTO) 0.3 /CMM (0.1-1.30); MONOCYTES % (AUTO) 4.1 % (2.0-12.0); NEUTROPHILS % (AUTO) 87.5 % (43.0-81.0); PLATELET COUNT (AUTO) 80 /CMM (150-450); RED BLOOD CELL COUNT(AUTO) 3.24 MIL/uL (4.5-6.0)
--- NOTE | 2021-02-05 19:13 | NUR ---
BACK FROM CT SCAN.
--- NOTE | 2021-02-05 19:14 | NUR ---
SPOKE TO RANJIT FROM [facility], CT IS CURRENTLY BEING READ.
[2021-02-05 19:16] LABS: CALCIUM, SERUM 8.8 mg/dL (8.5-10.1); CARBON DIOXIDE 35 mmol/L (21-32); CHLORIDE 98 mmol/L (98-107); CREATININE 2.9 mg/dL (0.6-1.3); GLUCOSE 115 mg/dL (74-106); POTASSIUM 4.1 mmol/L (3.5-5.1); SODIUM SERUM 139 mmol/L (136-145); UREA NITROGEN, BLOOD 12 mg/dL (7-18)
[2021-02-05] MEDS ORDERED: ALBUMIN 25% 100 ML IV ONE (19:23)
--- NOTE | 2021-02-05 19:24 | NUR ---
EMT AT BEDSIDE FOR EKG
--- NOTE | 2021-02-05 19:34 | NUR ---
GISELEID SWABBED, SENT TO LAB.
--- NOTE | 2021-02-05 19:37 | NUR ---
CALLED [facility] REGARDING CT, STATED CURRENTLY BEING READ. ER AWARE.
--- NOTE | 2021-02-05 19:46 | NUR ---
LAB CALLED REGARDING TYPE AND SCREEN, BLOOD WAS HEMOLYZED, ER AWARE.
--- NOTE | 2021-02-05 19:47 | NUR ---
[facility] [phone]
--- NOTE | 2021-02-05 19:47 | NUR ---
[facility] [phone]
--- NOTE | 2021-02-05 19:48 | NUR ---
LAB AT BEDSIDE FOR REDRAW
--- NOTE | 2021-02-05 19:54 | NUR ---
LEVOPHED DRIP LOWERED TO 0.4MCG/KG/ MIN.
[2021-02-05 19:55] LABS: EOSINOPHILS % (MANUAL) 1 % (0-4); LYMPHOCYTES % (MANUAL) 6 % (16-48); MONOCYTES % (MANUAL) 4 % (0-11.0); NEUTROPHILS % (MANUAL) 89 (42-76)
--- NOTE | 2021-02-05 19:58 | NUR ---
CALLED [facility], ON HOLD.
--- NOTE | 2021-02-05 20:00 | NUR ---
NOTED W/ BLEEDING FROM THE HD SITE ON THE FLEX. PRESSURE APPLIED AND KEPT THE ARM ELEVATED. DR GUARDADO MADE AWARE
--- NOTE | 2021-02-05 20:01 | NUR ---
CALLED [facility] CT BEING READ. ER AWARE.
--- NOTE | 2021-02-05 20:02 | NUR ---
LAB CALLED REGARDING NEGATIVE COVID RESULT.
--- NOTE | 2021-02-05 20:03 | NUR ---
CALLED [facility] REGARDING CT. [facility] MADE AWARE PT HAS STEMI AND AAA.
[2021-02-05] MEDS ORDERED: GELATIN SPONGE,ABSORBABLE 1 SPONGE SPONGE TP ONE (20:04)
--- NOTE | 2021-02-05 20:30 | NUR ---
JIM KLEIN TALKING TO DR. THOMAS REGARDING CT RESULT.
[2021-02-05] MEDS ORDERED: PIPERACILLIN /TAZOBACTAM 3.375 G VIAL IV ONE (20:33)
--- NOTE | 2021-02-05 20:34 | NUR ---
ER TALKING TO DR. JAIN REGARDING STEMI TXFR
--- NOTE | 2021-02-05 20:36 | NUR ---
ER MD SPOKE TO DR. JAIN REGARDING HLOC TRANSFER AND ACCEPTED PT.
[2021-02-05] MEDS ORDERED: HEPARIN SODIUM, PORCINE 5000 UNITS/1 ML VIAL ONE (20:40)
[2021-02-05] MEDS ORDERED: ASPIRIN 81 MG TAB.CHEW ONE (20:40)
--- NOTE | 2021-02-05 20:46 | NUR ---
[facility] CALLED FOR IFT HLOC FOR STEMI.
--- NOTE | 2021-02-05 20:50 | NUR ---
CALLED [facility] ER FOR REPORT. PER ER ANTENNA SPECIALIST HAS NOT ACCEPTED THE PT STEMI. DR GUARDADO ON THE PHONE WITH DR JAIN
--- NOTE | 2021-02-05 20:50 | NUR ---
DR GEO PICKERING WAS REMINDED OF THE BLEEDING FROM THE HD SITE ON LUE. BLEEDING IS CURRENTLY UNDER CONTROL WITH PRESSURE AND ELEVATING THE ARM WITH THE HELP OF THE well driller AT THE BED SIDE. PER DR GUARDADO OK TO GIVE THE HEPARIN AND THE ASA
[2021-02-05 20:54] VITALS: BP 188/52
--- NOTE | 2021-02-05 20:54 | NUR ---
LEVOPHED DRIP LOWERED TO 0.3 MCG/KG/MIN
--- NOTE | 2021-02-05 20:54 | NUR ---
JIM KLEIN TALKING TO DR. BROOKS REGARDING PT AT THIS TIME.
--- NOTE | 2021-02-05 20:54 | NUR ---
EMS AT BED SIDE TO ASSOCIATE PROFESSOR PLANT PATHOLOGY THE PT REPORT GIVET TO EMS
--- NOTE | 2021-02-05 20:58 | NUR ---
PT WAS PICKED UP BY EMS [facility]
[2021-02-05] MEDS ORDERED: PIPERACILLIN /TAZOBACTAM 3.375 G in IV D5W 50 ML IV ONE (21:00)
[2021-02-05] MEDS ORDERED: HEPARIN SODIUM, PORCINE 5000 UNITS/1 ML VIAL IV ONE (21:00)
[2021-02-05] MEDS ORDERED: ASPIRIN 81 MG TAB.CHEW PO ONE (21:00)
== END 2021-02-05 20:58 | disposition short-term general hospital (02) ==
LOC: ER 18:42
DX: I21.3 ST elevation (STEMI) myocardial infarction of unspecified site (principal); R55 Syncope and collapse; K81.9 Cholecystitis, unspecified; I95.9 Hypotension, unspecified; Z86.73 Personal history of transient ischemic attack (TIA), and cerebral infarction without residual deficits; Z95.5 Presence of coronary angioplasty implant and graft; I12.0 Hypertensive chronic kidney disease with stage 5 chronic kidney disease or end stage renal disease; N18.6 End stage renal disease; Z20.822 Contact with and (suspected) exposure to COVID-19; Z99.2 Dependence on renal dialysis; Z79.82 Long term (current) use of aspirin; Z79.899 Other long term (current) drug therapy; E11.22 Type 2 diabetes mellitus with diabetic chronic kidney disease; E78.5 Hyperlipidemia, unspecified; I25.10 Atherosclerotic heart disease of native coronary artery without angina pectoris
CPT/HCPCS: 36415; 70450; 71260; 74177; 80048; 82962; 84484; 85007; 85025; 85730; 86850; 87426; 93005; 96365; 96368; 96375; 99291; 99292; J1644; J2543; J7050 ×2; J7060; P9047; Q9967; C9803

== ENCOUNTER 2021-04-11 14:47 | Emergency (ER) | payer MEDICARE, OTHER ==
[~2021-04-11] VITALS: Ht 177.8 cm; Wt 80.7 kg
[2021-04-11] MEDS: IV NS 0.9% 500 ML BAG IV ONE (15:00)
[2021-04-11 15:09] LABS: BASOPHILS % (AUTO) 0.6 % (0.0-2.0); EOSINOPHILS % (AUTO) 1.5 % (0.0-6.0); HEMATOCRIT 31 % (39-51); LYMPHOCYTES # (AUTO) 0.5 K/uL (0.8-4.8); LYMPHOCYTES % (AUTO) 7.8 % (20.0-44.0); MEAN CORPUSCULAR HGB CONC 32 g/dl (31.0-36.0); MEAN CORPUSCULAR VOLUME 101 fL (80-96); MONOCYTES # (AUTO) 0.4 K/uL (0.1-1.30); MONOCYTES % (AUTO) 5.3 % (2.0-12.0); NEUTROPHILS # (AUTO) 5.9 K/uL (1.8-8.9); NEUTROPHILS % (AUTO) 84.8 % (43.0-81.0); PLATELET COUNT (AUTO) 106 K/uL (150-450)
--- NOTE | 2021-04-11 15:13 | NUR ---
[id number] FRM HOME C/O WEAKNESS. HYPOTENSIVE INSTRUCTIONAL SUPPORT SERVICES DIRECTOR. BG 141 PT HAD DIALYSIS EARLIER TODAY. ON ROOM AIR, BREATHING EVENLY AND UNLABORED. CONNECTED TO THE MONITOR AND PULSE OX. KEPT COMFORTABLE, WILL CONTINUE TO MONITOR ACCORDINGLY.
[2021-04-11 15:18] LABS: CALCIUM, SERUM 8.9 mg/dL (8.5-10.1); CARBON DIOXIDE 34 mmol/L (21-32); CHLORIDE 100 mmol/L (98-107); CREATININE 2.5 mg/dL (0.6-1.3); GLUCOSE 126 mg/dL (74-106); POTASSIUM 3.7 mmol/L (3.5-5.1); SODIUM SERUM 141 mmol/L (136-145); UREA NITROGEN, BLOOD 10 mg/dL (7-18)
[2021-04-11] MEDS ORDERED: MEMA14CA5 PO (15:24)
[2021-04-11] MEDS ORDERED: ROSU5TAB13 PO (15:24)
[2021-04-11] MEDS ORDERED: CHLO500T3 PO (15:24)
[2021-04-11] MEDS ORDERED: SEVE800T28 PO (15:24)
[2021-04-11 15:27] LABS: ALANINE AMINOTRANSFERASE 9 U/L (12-78); ALKALINE PHOSPHATASE 153 U/L (46-116); ASPARTATE AMINOTRANSFERASE 14 U/L (15-37); BILIRUBIN,DIRECT 0.2 mg/dL (0.0-0.2); BILIRUBIN,TOTAL 0.5 mg/dL (0.2-1.0); TOTAL PROTEIN, SERUM 7.2 g/dL (6.4-8.2)
[2021-04-11 18:01] VITALS: BP 110/61
--- NOTE | 2021-04-11 18:01 | NUR ---
Patient discharged to home in stable condition. Written and verbal after care instructions given. Patient verbalizes understanding of instruction.IV removed. Catheter intact and site benign. Pressure and 4x4 applied to site. No bleeding noted.
== END 2021-04-11 18:02 | disposition home or self-care (01) ==
LOC: ER 14:51
DX: R53.1 Weakness (principal); I95.9 Hypotension, unspecified; I12.0 Hypertensive chronic kidney disease with stage 5 chronic kidney disease or end stage renal disease; N18.6 End stage renal disease; Z99.2 Dependence on renal dialysis; Z79.899 Other long term (current) drug therapy; Z79.82 Long term (current) use of aspirin; Z86.73 Personal history of transient ischemic attack (TIA), and cerebral infarction without residual deficits
CPT/HCPCS: 36415; 71045-TC; 80048-TC; 80076-TC; 84484-TC; 85025-TC